=== PATIENT | female | born 1985 | race Caucasian/White ===

== ENCOUNTER 2023-09-13 07:55 | Outpatient (CLI) | payer OTHER, SELFPAY ==
--- NOTE | ~2023-09-13 | MM_ITS ---
EXAMINATION: MM screening bandar BI w roque HISTORY: Screening mammogram TECHNIQUE: Craniocaudal and mediolateral oblique 3-D tomosynthesis images were obtained and synthetic 2-D images were generated. CAD analysis was submitted and interpreted. COMPARISON: None, baseline BREAST PARENCHYMAL COMPOSITION: The breasts are heterogeneously dense, which may obscure small masses . FINDINGS: RIGHT BREAST: There are small masses in the posterior third of the upper-outer quadrant of the breast . No suspicious calcification or architectural distortion are identified. LEFT BREAST: There are small masses in the posterior third of the upper outer quadrant of the breast. No suspicious calcification or architectural distortion are identified. IMPRESSION: 1. Masses in the upper outer quadrants of the breasts. 2. Additional mammographic views and possible breast ultrasound are recommended to evaluate the bilat eral breast masses and establish a baseline given that this is the first mammographic examination. BI-RADS Category 0: Incomplete: Needs additional imaging evaluation. Reviewed, dictated and finalized at location A. SCIENCE PROFESSOR IMPRESSION: 1. Masses in the upper outer quadrants of the breasts. 2. Additional mammographic views and possible breast ultrasound are recommended to evaluate the bilateral breast masses and establish a baseline given that th is is the first mammographic examination. BI-RADS Category 0: Incomplete: Needs additional imaging evaluation.
== END 2023-09-13 07:56 | disposition home or self-care (01) ==
LOC: ANHIMG 08:02
PROVIDERS: PCP Internal Medicine; Visit Provider Obstetrics & Gynecology Gynecology
DX: Z12.31 Encounter for screening mammogram for malignant neoplasm of breast (principal); R92.8 Other abnormal and inconclusive findings on diagnostic imaging of breast
CPT/HCPCS: 77063; 77067

== ENCOUNTER 2023-10-16 12:24 | Outpatient (CLI) | payer OTHER, SELFPAY ==
--- NOTE | ~2023-10-16 | MMUS_ITS ---
EXAMINATION: MM diagnostic bandra BI w roque, US breast LT limited HISTORY: Bilateral breast masses on screening mammogram TECHNIQUE: Additional 3-D tomosynthesis images of the breasts were performed and synthetic 2-D images were generated. CAD analysis was submitted and interpreted. High resolution limited left breast ultr asound was performed. COMPARISON: 09/13/2023 BREAST PARENCHYMAL COMPOSITION: The breasts are heterogeneously dense, which may obscure small masses . FINDINGS: MAMMOGRAPHIC FINDINGS: Right breast: With spot compression, the masses identified in the upper outer quadrant breast are dem onstrated to contain central fat, consistent with intramammary lymph nodes. No suspicious cystic or s olid mass is identified. Left breast: One of the two masses identified in the upper outer quadrant of the left breast demonstr ates central fat with spot compression. A 5 mm mass in the upper outer quadrant posterior likely cont ains fat but further evaluation with ultrasound will be performed. ULTRASOUND: Intramammary lymph node is noted in the upper outer quadrant of the left breast at the 2:00 location, 9 cm from the nipple corresponding to the mammographic findings. No suspicious cystic or solid mass is identified. IMPRESSION: 1. No mammographic or sonographic evidence of malignancy. 2. Recommend routine screening mammography in one year. BI-RADS Category 2: Benign finding(s). Reviewed, dictated and finalized at location A. ER PATCHER IMPRESSION: 1. No mammographic or sonographic evidence of malignancy. 2. Recommend routine screening mammography in one year. BI-RADS Category 2: Benign finding(s).
--- NOTE | ~2023-10-16 | US_ITS ---
EXAMINATION: US pelvic complete w TV DATE: 10/16/2023 14:50 INDICATION: Abnormal uterine bleeding TECHNIQUE: Multiple transabdominal and endovaginal sonographic images of the pelvis were obtained. COMPARISON: None. FINDINGS: The uterus measures 7.5 x 3.7 x 3.9 cm. The endometrial complex measures 9 mm in thickness. A few an echoic nabothian cysts at the cervix the largest measuring 9 mm. The right ovary measures 2.7 x 1.7 x 2.5 cm. The left ovary measures 3.0 x 2.4 x 2.0 cm. There are bilateral anechoic ovarian cysts the l argest measuring 1.7 cm on the left and 1.6 cm on the right. Vascular flow identified in both ovaries on color Doppler. There is no free fluid in the pelvis. IMPRESSION: 1. A few nabothian cysts at cervix measuring up to 9 mm and a few bilateral ovarian cysts measuring u p to 1.7 cm . Reviewed, dictated and finalized at location A. UNITY PLACEMENT WORKER IMPRESSION: 1. A few nabothian cysts at cervix measuring up to 9 mm and a few bilateral ova yumiko cysts measuring up to 1.7 cm .
== END 2023-10-16 12:25 | disposition home or self-care (01) ==
LOC: ANHIMG 12:25
PROVIDERS: PCP Internal Medicine; Visit Provider Obstetrics & Gynecology Gynecology
DX: R92.8 Other abnormal and inconclusive findings on diagnostic imaging of breast (principal); N93.9 Abnormal uterine and vaginal bleeding, unspecified; N88.8 Other specified noninflammatory disorders of cervix uteri; N83.201 Unspecified ovarian cyst, right side; N83.202 Unspecified ovarian cyst, left side
CPT/HCPCS: 76642; 76830; 76856; 77062; 77066; G0279